=== PATIENT | male | born 1990 | race Caucasian/White ===

== ENCOUNTER 2017-11-29 17:52 | Emergency (ER) | payer OTHER ==
[~2017-11-29] VITALS: Ht 167.6 cm; Wt 56.2 kg
[2017-11-29] MEDS ORDERED: ACET650S26 GT (18:53)
[2017-11-29] MEDS ORDERED: ENOX60DI SQ (18:53)
[2017-11-29] MEDS ORDERED: OLAN10TA3 GT (18:53)
[2017-11-29] MEDS ORDERED: POLY17PO4 GT (18:53)
[2017-11-29] MEDS ORDERED: PANT40SU2 GT (18:53)
[2017-11-29] MEDS ORDERED: MIRT15TA GT (18:53)
[2017-11-29] MEDS ORDERED: ALBU2.5V38 IH (18:53)
[2017-11-29] MEDS ORDERED: HALO5TAB GT (18:53)
[2017-11-29] MEDS ORDERED: OLAN5TAB3 GT (18:53)
[2017-11-29] MEDS ORDERED: IPRA0.2S9 IH (18:53)
[2017-11-29] MEDS ORDERED: TAMS-12 GT (18:53)
[2017-11-29] MEDS ORDERED: MORP10SO GT (18:53)
[2017-11-29] MEDS ORDERED: TRAZ-144 GT (18:53)
[2017-11-29] MEDS ORDERED: CHOL100044 GT (18:53)
[2017-11-29] MEDS ORDERED: SENN-167 GT (18:53)
[2017-11-29] MEDS ORDERED: DOCU50LI GT (18:53)
[2017-11-29] MEDS ORDERED: HALO0.5T4 GT (18:53)
[2017-11-29] MEDS ORDERED: BISA10SU8 RC (18:53)
[2017-11-29] MEDS ORDERED: VALP250S4 GT (18:53)
[2017-11-29] MEDS ORDERED: LORA1TAB GT (18:53)
[2017-11-29] MEDS ORDERED: [UNRECOGNIZED DRUG - CODE] GT (18:53)
[2017-11-29] MEDS ORDERED: DIATR MEGLU/DIATRIZOATE SODIUM 30 ML BOTTLE (GASTROGRAPHIN) ONE (18:58)
--- NOTE | 2017-11-29 19:23 | NUR ---
REPORT RECEIVED FROM LONA TAVAREZ FOR [facility].
[2017-11-29] MEDS ORDERED: HALOPERIDOL LACTATE INJ 5 MG/ML VIAL IM ONE (19:30)
[2017-11-29] MEDS ORDERED: LORAZEPAM INJ 2 MG/ML VIAL IM ONE (19:30)
[2017-11-29] MEDS ORDERED: LORAZEPAM INJ 2 MG/ML VIAL ONE (19:56)
[2017-11-29] MEDS ORDERED: HALOPERIDOL LACTATE INJ 5 MG/ML VIAL ONE (19:56)
--- NOTE | 2017-11-29 20:28 | NUR ---
REQUESTED TRANSPORTATION WITH [facility] BACK TO [facility] [address] [place] [address] ETA [id number]
--- NOTE | 2017-11-29 22:37 | NUR ---
CALLED [facility] FOR UPDATED ETA, 30 MINS.
--- NOTE | 2017-11-29 23:21 | NUR ---
Patient discharged to home in stable condition. Written and verbal after care instructions given to [facility] EMT, EMT verbalizes understanding of instruction.
--- NOTE | 2017-11-29 23:21 | NUR ---
REPORT GIVEN TO RAGHAV FOR PT TRANSPORT. PT VSS.
[2017-11-29 23:22] VITALS: BP 125/65
== END 2017-11-29 23:23 | disposition home or self-care (01) ==
LOC: ER 17:54
DX: K94.23 Gastrostomy malfunction (principal)
CPT/HCPCS: 74018; A4606; J1630; J2060; Q9963; Z7610